=== PATIENT | male | born 1985 | race Caucasian/White ===

== ENCOUNTER 2024-05-06 17:13 | Emergency (ER) | payer OTHER, SELFPAY ==
[2024-05-06 17:17] VITALS: BP 135/94; PULSE 79; RESP 12; TEMP 36.9; O2SAT 98
--- NOTE | 2024-05-06 17:30 | DI.RAD_ITS ---
Exam(s) XR HAND RT COMPLETE EXAM: XR HAND RT COMPLETE CLINICAL HISTORY: Crush injury. TECHNIQUE: 2D digital imaging was performed of the right hand. Three images were obtained. AP, late ral and oblique views were obtained. COMPARISON: No exams were available for comparison FINDINGS: BONES: No acute fracture is present. No bony destructive lesion is seen. JOINTS: No dislocation present. SOFT TISSUE: Normal. IMPRESSION: No acute fracture or dislocation. DATA REPOSITORY: RADIATION DOSE DELIVERED:
--- NOTE | 2024-05-06 18:01 | ED.GENADUL_ITS ---
Discharge Plan Disposition Patient Disposition: Home Condition: Stable Discharge Details Clinical Impression: Crushing injury of right index finger Primary Care Provider: Wendy,Local ED Provider: Edwina Mcbride Home Meds and New Rx's Prescriptions: No Action No Known Home Meds Discharge Instructions Instructions: Crush Injury (DC), Skin glue for minor cuts Additional Instructions: No evidence of fracture noted on x-rays. The skin glue will slough off on its own in about 4 to 6 days. Please be seen sooner for any signs of infection red streaks or drainage. Keep clean and dry. Allow to air dry at least 1 to 2 hours a day. Please take Tylenol or Ibuprofen with food every 4-6 hours as needed for pain and swelling. Follow up with primary care provider in 3-5 days. Return to ED sooner if any worsening or concerns. Referrals: Primary Care Provider [Outside] - Return if symptoms worsen Discharge Data Discharge Date/Time-TO BE ENTERED AT DEPARTURE: 05/06/24 18:30 HPI General Mode of arrival: ambulatory . Date/Time Provider Initiated Documentation: 05/06/24 17:30 . Limitations to Documentation: no limitations . Information obtained by: patient, RN notes reviewed and old records reviewed . HPI Narrative: 38-year-old male presents to the ER with chief complaint of right middle finger injury after getting finger stuck in a tailgate's prior to arrival. Patient has a small laceration noted to the distal aspect of his finger. CMS intact. Flexion intact. X-rays are within normal limits shows no acute fracture. He is out of date on his tetanus vaccination. Related Data Home Medications ?Medication ?Instructions ?Recorded ?Confirmed Unknown [No Known Home Meds] 05/06/24 05/06/24 Allergies Allergy/AdvReac Type Severity Reaction Status Date / Time No Known Allergies Allergy Unverified 05/06/24 17:19 General Stated Complaint: Orthopedic JALEN: 4 Review of Systems Integumentary/Breasts Skin/Breast: Reports as per HPI and Reports wounds Exam Extrem Right upper extremity: hand Details: abrasion Location: of the 3rd digit Location: at the DIP joint and on the dorsal aspect and laceration Hand/finger images: 2 1. Irregular small superficial laceration noted to the DIP joint, bleeding controlled. Distal sensation movement and circulation intact. Course Vital Signs Vital signs: Vital Signs Temperature 36.9 C 05/06/24 17:17 Pulse 79 10/25/24 17:17 Respiratory Rate 12 05/06/24 17:17 Blood Pressure 135/94 H 05/06/24 17:17 Pulse Oximetry 98 05/06/24 17:17 Temperature 36.9 C 05/06/24 17:17 Temperature Source Skin 05/06/24 17:17 Pulse 79 05/06/24 17:17 Respiratory Rate 12 05/06/24 17:17 Respiratory Effort Normal, Non-Labored 05/06/24 17:41 Blood Pressure 135/94 H 05/06/24 17:17 Blood Pressure Position Sitting 05/06/24 17:17 Pulse Oximetry 98 05/06/24 17:17 Oxygen Delivery Method Room Air 05/06/24 17:17 Oxygen Flow Rate 0 05/06/24 17:17 Pain Level 8 05/06/24 17:41 Medical Decision Making 38-year-old male presents to the ER with chief complaint of right middle finger injury after getting finger stuck in a tailgate's prior to arrival. Patient has a small laceration noted to the distal aspect of his finger. CMS intact. Flexion intact. X-rays are within normal limits shows no acute fracture. He is out of date on his tetanus vaccination. Will give tetanus booster, Tylenol, wound care and Dermabond. Will discharge with home care. This text was generated using [employer] dictation system, please disregard any oddities of phrase or misspellings. Quality:SDOH Health Related Social Needs: 2 No Data to Display PFSH All Active Problems (Updated 05/06/24 @ 18:28 by Edwina Mcbride NP) Crushing injury of right index finger (Acute) Social History Smoking/Tobacco Use Status: Never Smoking risk assessment performed?: Yes Alcohol Intake: former Drug use: Never Substance use type: does not use Housing: house Do you feel safe at home: Yes Do you feel safe in your relationship?: Yes
[2024-05-06] MEDS: Acetaminophen 500 MG TAB 1000 MG PO (18:34)
--- OUTSIDE RECORDS SUMMARY | 2024-05-06 18:37 | XMS_ITS | Continuity of Care Document ---
Author Organization [facility] [place] [facility] Address [address] [place] [address] Care Team Providers Care Accredited Farm Manager Name Role Phone No Local PCP, No Local PCP Primary Care Physicia n Unavailable Encounter Date(s): 06/12/21 - 06/12/21 [facility] [address] [place], [place] [address] Discharge Disposition: Home or Self Care Social History Social History Type Response Sex Male
--- OUTSIDE RECORDS SUMMARY | 2024-05-06 18:37 | XMS_ITS | Referral Summary ---
Author Organization [facility] Address [address] [place] [address] Care Team Providers Care Gaming Cashier Name Role Phone Unavailable Primary Care Provider Unavailabl e Allergies No known active allergies Active Problems Problem Noted Date Diagnosed Date Bilateral shoulder pain 03/23/2017 Social History Tobacco Use Types Packs/Day Years Used Date Smoking Tobacco: Never Assessed Interpersonal Safety Answer Date Record ed Physically Hurt Never 02/12/2020 Verbally Threaten Not on file 02/12/2020 Sex and Gender Information Value Date Recorded Sex Assigned at Not on file Gender Identity Not on file Sexual Orientation Not on file Plan of Treatment Not on file
--- OUTSIDE RECORDS SUMMARY | 2024-05-06 18:37 | XMS_ITS | Encounter Summary ---
Author Organization [facility] Address [address] [place] [address] Care Team Providers Care Diamond Saw Operator Name Role Phone Unavailable Primary Care Provider Unavailabl e Encounter Details Date Type Department Care Team ([facility] st Contact Info) Description 03/23/2017 Historical Results Only [facility] Radiology Results [address] [place] [id number] Vivek Garcia MD [address] [facility] [address] [place], [place] [id number] Social History Tobacco Use Types Packs/Day Years Used Date Smoking Tobacco: Never Assessed Sex and Gender Information Value Date Recorded Sex Assigned at Not on file Gender Identity Not on file Sexual Orientation Not on file documented as of this encounter Plan of Treatment Not on file documented as of this encounter Procedures Procedure Name Priority Date/Time Associated Diagnosis Comments XR SHOULDER RIGHT 2 OR MORE VIEWS 03/23/2017 11:05 EDT XR SHOULDER LEFT 2 OR MORE VIEWS 03/23/2017 11:05 EDT documented in this encounter Results * XR SHOULDER RIGHT 2 OR MORE VIEWS (03/23/2017 11:05 EDT) Anatomical Region Laterality Modality Right Other 03/23/2017 11:0 5 EDT Narrative 03/24/2017 17:42 EDT [facility]: [facility] [address] [place], [place] [address] Diagnostic Imaging Report Signed Patient Name:ELMER HORN ? Date of :1985 ? MR Number:[id number] Age:31 ?Sex:M Category: CR ? Date of Exam:03/23/17 Procedure: CR: Shoulder, RT; complete, 2v ? Ordering Physician: Vivek Garcia MD CC: Huang Nelson MD, Benjamin MD RIGHT SHOULDER The patient has bilateral shoulder pain. Three views are submitted with no prior right shoulder series currently available for comparison. No significant bone, joint or surrounding soft tissue abnormality is seen. ??The included chest appears unremarkable. IMPRESSION: ??No significant imaging abnormality is identified. TOMÁS/jlt Dictated by: Eneida Ott MD ? D/ 1742 Transcribed by: EARL ? D/ 20 E-Signed by: <Electronically signed by Eneida Ott MD> ? D/ 1700 Procedure Note Kerwin Ott MD - 08/09/2019 [facility]: [address] [address] Diagnostic Imaging Report Signed Patient Name:Yolie HORN Number:[id number] Date of :1985 MRNumber:[id number] Age:31 Sex:M Category: CR Date ofExam:03/23/17 Procedure: CR: Shoulder, RT; complete, 2vAccession: [id number] Ordering Physician: Vivek Garcia MD CC: Huang Nelson MD, Benjamin MD RIGHT SHOULDER The patient has bilateral shoulder pain. Three views are submitted with no prior right shoulder series currentlyavailable for comparison. No significant bone, joint or surrounding soft tissue abnormality is seen.The included chest appears unremarkable. IMPRESSION: No significant imaging abnormality is identified. TOMÁS/yamila Dictated by: Eneida Ott MDD/ 41 Transcribed by: JPRACHI/ 20 E-Signed by: <Electronically signed by Eneida Ott MD>D/ 170 Vivek Garcia MD IMG DIAGNOSTIC I MAGING ORDERABLES * XR SHOULDER LEFT 2 OR MORE VIEWS (03/23/2017 11:05 EDT) Anatomical Region Laterality Modality Left Other 03/23/2017 11:0 5 EDT Narrative 03/24/2017 17:44 EDT [facility]: [address] [id number] Diagnostic Imaging Report Signed Patient Name:ELMER HORN ? Date of :1985 ? MR Number:[id number] Age:31 ?Sex:M Category: CR ? Date of Exam:03/23/17 Procedure: CR: Shoulder, LT; complete, 2v ? Ordering Physician: Vivek Garcia MD CC: Huang Nelson MD, Benjamin MD LEFT SHOULDER The patient has bilateral shoulder pain. Three views are submitted with no prior left shoulder series currently available for comparison. ??No significant bone, joint or surrounding soft tissue abnormality is noted. ??The included chest appears unremarkable. IMPRESSION: ??No significant imaging abnormality is identified. OTT/jlt Dictated by: Eneida tOt MD ? D/ 1744 Transcribed by: EARL ? D/ 32 E-Signed by: <Electronically signed by Eneida Ott MD> ? D/ 0834 Procedure Note Kerwin Ott MD - 08/09/2019 [facility]: [place] [id number] Diagnostic Imaging Report Signed Patient Name:Yolie HORN Number:[id number] Date of :1985 MRNumber:[id number] Age:31 Sex:M Category: CR Date ofExam:03/23/17 Procedure: CR: Shoulder, LT; complete, 2vAccession: [id number] Ordering Physician: Vivek Garcia MD CC: Huang Nelson MD, Benjamin MD LEFT SHOULDER The patient has bilateral shoulder pain. Three views are submitted with no prior left shoulder series currentlyavailable for comparison. No significant bone, joint or surrounding soft tissue abnormality is noted.The included chest appears unremarkable. IMPRESSION: No significant imaging abnormality is identified. TOMÁS/yamila Dictated by: Eneida Ott/ 174 Transcribed by: JARED/ 32 E-Signed by: <Electronically signed by Eneida Ott MD>D/ 0834 Vivek Garcia MD IMG DIAGNOSTIC I MAGING ORDERABLES documented in this encounter Visit Diagnoses Not on filedocumented in this encounter
--- OUTSIDE RECORDS SUMMARY | 2024-05-06 18:37 | XMS_ITS | Continuity of Care Document ---
Author Organization [facility] Address [address] [facility], [facility] [address] [place] [address] Phone [phone] Care Team Providers Care Disk Operator Name Role Phone Bravo White NP Care Team Information Strawhat Blocking Operator + [phone] Problems Active Problems Provider Date Tobacco user Onset: 5 Urethritis Onset: 5 Irritable bowel syndrome ascencion racterized by alternating bowel habit Bravo White NP Onset: 04/16/2022 Migraine Bravo White NP Onset: 2 Gastroesophageal reflux disease Bravo White NP Onset: 10/29/2021 Social History Type Date Description Comments Sex Male Tobacco Use Reviewed: 12/02/23 Never Used Sm okeless Tobacco ETOH Use 08/12/2018 Denies alcohol use Recreational Drug Use 08/12/2018 Denies Drug Use Tobacco Use Start: Unknown End: Unknown Patient is a former smoker stopped smoking May 3 years ago. Smoking Status Reviewed: 12/02/23 Patient is a former smoker stopped smoking May 3 years ago. Allergies and adverse reactions Description No Known Drug Allergies Medications Active Medications SIG Qnty Indications Order ing Provider Date Pantoprazole [id number] Tablets DR 1 cap by mouth every day 90tabs K21.9 Bravo White NP 12/02/2023 Tums Extra Strength [id number] Chewtabs 1 tab chewed as needed for heartburn 60units K21.9 JOHANNE Salcido 08/14/2022 [id number] Tablets 1-2 tab by mouth every 8 hours as needed Unknown Immunizations CPT Code Status Date Vaccine Lot # [id number] Given 08/12/2018 Tdap ( State Supply) 19-6 4yrs [id number] Vital Signs Date Vital Result Comment 12/02/2023 4:32pm Weight 198.00 lb Weight 89.813 kg Height 71 inches 5'11 Height in cm's 180.3 cm BP Systolic 112 mmHg Cuff- Regular, L eft Arm BP Diastolic 62 mmHg Cuff- Regular, L eft Arm Heart Rate 100 /min Electronically A cq Body Temperature 99.4 F Tympanic Body Temperature 37.4 C Respiratory Rate 18 /min O2 % BldC Oximetry 97 % BMI (Body Mass Index) 27.6 kg/m2 09/15/2023 4:06pm Weight 206.00 lb Weight 93.442 kg Height 71 inches 5'11 Height in cm's 180.3 cm BP Systolic 120 mmHg Cuff- Regular, L eft Arm BP Diastolic 70 mmHg Cuff- Regular, L eft Arm Heart Rate 100 /min Electronically A cq Body Temperature 98.1 F Tympanic Body Temperature 36.7 C Respiratory Rate 20 /min O2 % BldC Oximetry 96 % BMI (Body Mass Index) 28.7 kg/m2 Medical Devices Description No Information Available Encounters Type Date Location Provider Dx Diagnosis Office Visit 12/02/2023 4:30p [facility] Bravo White NP K21.9 Gastro-esophageal reflux disease without esophagitis K58.2 Mixed irritable kirsty l syndrome G43.909 Migraine, unsp, not intractable, without status migrainosus Z71.3 Dietary counseling a nd surveillance Plan of Treatment Future Appointment(s):* 07/22/2024 1:30 pm - rBavo White NP at [facility] 12/02/2023 - Bravo White NP* K21.9 Gastro-esophageal reflux disease without esophagitis* New Medication:* Pantoprazole Sodium 40 mg - 1 cap by mouth every day * Follow up:* 4 months. If condition worsens. As needed. * K58.2 Mixed irritable bowel syndrome* Follow up:* If condition worsens. As needed. * G43.909 Migraine* Follow up:* If condition worsens. As needed. * Z71.3 Dietary counseling and surveillance * All* Recommendations:* F/u 1 MONTH Functional Status Description No Information Available Mental Status Description No Information Available Referrals Description No Information Available
--- OUTSIDE RECORDS SUMMARY | 2024-05-06 18:37 | XMS_ITS | Clinical Summary ---
Author Organization [facility] Address [address] [place] [address] Care Team Providers Care House Painting Instructor Name Role Phone Unavailable Primary Care Provider [...] Orientation Not on file Plan of Treatment Health Maintenance Due Date Last Done Comments Hepatitis C Screen 1985 Hepatitis B Vaccine (1 of 3 - 19+ 3-dose series) 06/08 COVID-19 Vaccine (2022-24 season) 2023
--- OUTSIDE RECORDS SUMMARY | 2024-05-06 18:37 | XMS_ITS | Encounter Summary ---
Author Organization [facility] Address [address] [place] [address] Care Team Providers Care Histopathologist Name Role Phone Unavailable Primary Care Provider Unavailabl e Encounter Details Date Type Department Care Team (Late st Contact Info) Description 10/17/2019 Abstract [facility] - [place] [address] [place] [address] Bravo White, ORGAN TEACHER [address] [place], [place] [id number] Social History Tobacco Use Types Packs/Day Years Used Date Smoking Tobacco: Never Assessed Sex and Gender Information Value Date Recorded Sex Assigned at Not on file Gender Identity Not on file Sexual Orientation Not on file documented as of this encounter Plan of Treatment Not on file documented as of this encounter Visit Diagnoses Not on filedocumented in this encounter
== END 2024-05-06 18:30 | disposition home or self-care (01) ==
LOC: ER 18:35
PROVIDERS: Emergency Provider Registered Nurse Emergency
DX: S67.192A Crushing injury of right middle finger, initial encounter (principal); Z23 Encounter for immunization; V58.4XXA Person boarding or alighting a pick-up truck or van injured in noncollision transport accident, initial encounter
CPT/HCPCS: 90471; 90715; 99284; 73130; 99283